=== PATIENT | male | born 1985 | race Caucasian/White ===

== ENCOUNTER 2020-10-27 20:51 | Emergency (ER) | payer SELFPAY ==
[~2020-10-27] VITALS: Ht 177.8 cm; Wt 91.2 kg
[~2020-10-27 20:51] MED LIST: ALBU90OI INH; AZIT250 PO; BENZ100A PO; CEPH500 PO; CODGUAEL PO; Cleocin HCl300 MG PO; DIPH50 PO; DOCU100 PO; HYDACE5 PO; IBUP800 PO; LORA1 PO; METPRE4DP PO; MOM PO; Naprosyn250 MG PO; Naprosyn500 MG PO; OXYACE5T PO; PERM5TC TOP; PRED20 PO; PROCODE120 PO; PSEU120ER PO; RXOXYACE PO; TRAM50 PO
== END 2020-10-27 22:05 | disposition home or self-care (01) ==
LOC: ER 20:51
DX: S20.361A Insect bite (nonvenomous) of right front wall of thorax, initial encounter (principal); W57.XXXA Bitten or stung by nonvenomous insect and other nonvenomous arthropods, initial encounter
CPT/HCPCS: 99281

== ENCOUNTER 2021-03-30 21:23 | Emergency (ER) | payer OTHER ==
[~2021-03-30] VITALS: Ht 175.3 cm; Wt 90.7 kg
== END 2021-03-30 21:58 | disposition home or self-care (01) ==
LOC: ER 21:23
DX: K03.81 Cracked tooth (principal); K02.9 Dental caries, unspecified; Z88.0 Allergy status to penicillin
CPT/HCPCS: 99282; A9270

== ENCOUNTER 2022-10-18 23:41 | Emergency (ER) | payer OTHER ==
[~2022-10-18] VITALS: Ht 175.3 cm; Wt 83.9 kg
[2022-10-18 23:44] VITALS: BP 151/90
== END 2022-10-18 23:52 | disposition home or self-care (01) ==
LOC: ER 23:41
DX: S90.561A Insect bite (nonvenomous), right ankle, initial encounter (principal); F41.9 Anxiety disorder, unspecified; Z88.0 Allergy status to penicillin; W57.XXXA Bitten or stung by nonvenomous insect and other nonvenomous arthropods, initial encounter
CPT/HCPCS: 99282

== ENCOUNTER 2023-03-20 09:48 | Emergency (ER) | payer SELFPAY ==
[~2023-03-20] VITALS: Ht 177.8 cm; Wt 72.6 kg
[2023-03-20 10:41] VITALS: BP 118/64
[2023-03-20] MEDS ORDERED: Cleocin HCl150 MG PO (10:44)
[2023-03-20] MEDS ORDERED: Norco 5-325 Ta1 EACH PO (10:44)
== END 2023-03-20 10:45 | disposition home or self-care (01) ==
LOC: ER 09:48
DX: K08.89 Other specified disorders of teeth and supporting structures (principal); F95.2 Tourette's disorder; Z88.0 Allergy status to penicillin
CPT/HCPCS: 99282

== ENCOUNTER 2023-03-28 03:11 | Emergency (ER) | payer SELFPAY ==
[~2023-03-28] VITALS: Ht 175.3 cm; Wt 99.8 kg
[~2023-03-28 03:11] MED LIST changes: +Cleocin HCl150 MG PO; +Norco 5-325 Ta1 EACH PO
[2023-03-28 04:45] VITALS: BP 112/82
== END 2023-03-28 05:23 | disposition home or self-care (01) ==
LOC: ER 03:11
DX: R20.2 Paresthesia of skin (principal); R06.4 Hyperventilation; Z88.0 Allergy status to penicillin
CPT/HCPCS: 93005; 93010; 99284-25

== ENCOUNTER 2023-04-21 00:19 | Emergency (ER) | payer SELFPAY ==
[~2023-04-21] VITALS: Ht 175.3 cm; Wt 97.5 kg
[2023-04-21 00:25] VITALS: BP 132/94
[2023-04-22] MEDS ORDERED: HYDHCL25 PO (16:26)
== END 2023-04-21 06:07 | disposition left against medical advice (07) ==
LOC: ER 00:19
DX: Z53.21 Procedure and treatment not carried out due to patient leaving prior to being seen by health care provider (principal)
CPT/HCPCS: 71046; 93005; 93010

== ENCOUNTER 2023-04-22 12:08 | Emergency (ER) | payer SELFPAY ==
[~2023-04-22] VITALS: Ht 177.8 cm; Wt 97.5 kg
[2023-04-22 13:01] LABS: BASOPHILS ABSOLUTE AUTO 0.07 K/mm3 (0.00-0.23); BASOPHILS PERCENT AUTO 1 % (0-2); EOSINOPHILS ABSOLUTE AUTO 0.51 K/mm3 (0.00-0.68); EOSINOPHILS PERCENT AUTO 8 % (0-6); Hematocrit 46.5 % (37.0-53.0); Hemoglobin 16.5 g/dL (13.5-17.5); IMMATURE GRAN ABSOLUTE AUTO 0.01 K/mm3 (0.00-0.10); IMMATURE GRAN PERCENT AUTO 0 % (0-1); LYMPHOCYTES ABSOLUTE AUTO 2.08 K/mm3 (0.84-5.20); LYMPHOCYTES PERCENT AUTO 32 % (21-46); MONOCYTES PERCENT AUTO 8 % (4-13); Mean Corpuscular HGB 29.4 pg (26.0-34.0); Mean Corpuscular HGB Conc 35.5 g/dL (31.5-36.5); Mean Corpuscular Volume 83 fL (80-100); Mean Platelet Volume 10.6 fL (9.1-12.4); NEUTROPHILS PERCENT AUTO 51 % (41-73); NRBC ABSOLUTE 0.02 K/mm3 (0.00-0.02); NRBC Auto 0.3 /100 WBC (0.0-0.2); Platelet Count 198 K/mm3 (150-400); RDW Coefficient Variation 11.9 % (11.7-14.2); Red Blood Cell Count 5.61 M/mm3 (4.30-5.90); White Blood Cell Count 6.47 K/mm3 (4.00-11.30)
[2023-04-22 13:23] LABS: Albumin, Blood 3.8 g/dL (3.4-5.0); Albumin/Globulin Ratio 1.1 (0.8-1.8); Bilirubin, Total 0.7 mg/dL (0.1-1.0); Bun/Creatinine Ratio 17.3 (12.0-20.0); Creatinine, Blood 1.1 mg/dL (0.60-1.20); Globulin, Blood 3.6 g/dL (2.2-4.0); Potassium, Blood 3.8 mmol/L (3.5-5.5); Total Protein, Blood 7.4 g/dL (6.4-8.2)
[2023-04-22 16:15] VITALS: BP 118/79
[2023-04-22] MEDS ORDERED: HYDHCL25 PO (16:26)
== END 2023-04-22 16:47 | disposition home or self-care (01) ==
LOC: ER 12:08
PROVIDERS: Student in an Organized Health Care Education/Training Program
DX: F41.9 Anxiety disorder, unspecified (principal); G47.00 Insomnia, unspecified; F84.0 Autistic disorder; F42.9 Obsessive-compulsive disorder, unspecified; Z88.0 Allergy status to penicillin
CPT/HCPCS: 80053; 83880; 84484; 85025; 93005; 93010; 99285-25; A9270

== ENCOUNTER 2025-03-13 08:29 | Emergency (ER) | payer SELFPAY ==
[~2025-03-13] VITALS: Ht 177.8 cm; Wt 83.9 kg
[~2025-03-13 08:29] MED LIST changes: +HYDHCL25 PO
[2025-03-13 08:42] VITALS: BP 129/79
== END 2025-03-13 09:57 | disposition home or self-care (01) ==
LOC: ER 08:29
DX: F41.9 Anxiety disorder, unspecified (principal); R07.9 Chest pain, unspecified; M79.602 Pain in left arm; Z88.0 Allergy status to penicillin
CPT/HCPCS: 99283